=== PATIENT | female | born 1990 | race Caucasian/White ===

== ENCOUNTER 2022-12-16 16:15 | Outpatient (CLI) | payer OTHER ==
--- NOTE | 2022-12-16 18:26 | US ---
EXAMINATION TYPE: US OB anatomy transabd DATE OF EXAM: 12/16/2022 COMPARISON: NONE HISTORY: no care repeat c/s possible labor No care. Pt had an us in [place] last we ek, and the baby wasn't in good enough position to get anatomy. TECHNIQUE: Transabdominal (TA) EXAM MEASUREMENTS: GESTATIONAL AGE / DATING Physician Established:Not established yet Dates by LMP: Unknown Dates by First Scan: No previous this is first scan Dates by Current Scan for: (32 weeks/5 days) EDC: 02/05/23 SURVEY IUP: Single PLACENTA: Anterior PREVIA: No previa MADISON: 12.8 cm Normal CERVICAL LENGTH (transabdominal: norm > 3.0cm): 3.2 cm BIOMETRY PRESENTATION: Vertex LIE: Longitudinal BPD: 8.3 cm 33 weeks / 2 days HC: 29.7 cm 33 weeks / 0 days AC: 28.6 cm 32 weeks / 4 days FL: 6.4 cm 33 weeks / 2 days ESTIMATED WEIGHT IN GRAMS: 2076 grams ESTIMATED WEIGHT IN LBS/OZ: 4 lbs. 9 oz. HC/AC: 1.04 Normal FL/AC: 22.5 Normal HEART RATE: 160 bpm RHYTHM: Normal ANATOMY SEEN (within normal limits): Four Chamber Heart Stomach Situs Diaphragm Kidneys (bilateral) Bladder Three Vessel Cord Longitudinal Spine Transverse Spine Arms (bilateral) Legs (bilateral) ANATOMY NOT SEEN: Brain structures Cord insertion Nose/lips Outflow tracts No obvious anomaly visualized during exam. Dr. Cho was in the room during the exam, and did not see any abnormalities either. Baby measuring 32 weeks 5 days. IMPRESSION: Single live intrauterine gestation with ultrasound age 32 weeks 5 days additional information as desc ribed above.
[2022-12-16 19:09] LABS: Appearance,Urine Clear (Clear); Bacteria,Urine Occasional /hpf; Bilirubin,Urine Negative (Negative); Blood,Urine Trace (Negative); Color,Urine Yellow; Glucose,Urine (UA) Negative (Negative); Ketones,Urine 2+ (Negative); Leukocyte Esterase,Urine Negative (Negative); Mucus,Urine Rare /hpf; Nitrite,Urine Negative (Negative); Protein,Urine Trace (Negative); RBC,Urine 23 /hpf (0-5); Specific Gravity,Urine 1.025 (1.001-1.035); Squamous Epithelial Cell,Urine 10 /hpf (0-4); WBC,Urine 2 /hpf (0-5)
[2022-12-16 19:31] LABS: Amphetamine Screen,Urine Not Detected (NotDetected); Barbiturate Screen,Urine Not Detected (NotDetected); Benzodiazepines Screen,Urine Not Detected (NotDetected); Cocaine Screen,Urine Not Detected (NotDetected); Methadone Screen, Urine Not Detected (NotDetected); Opiate Screen,Urine Not Detected (NotDetected); Oxycodone Screen, Urine Not Detected (NotDetected); Phencyclidine Screen,Urine Not Detected (NotDetected); Tricyclic Antidepressant,Urine Not Detected (NotDetected); Urn Cannabinoid Scrn Detected (NotDetected)
[2022-12-16 20:06] VITALS: BP 118/57; PULSE 85; RESP 16; TEMP 98.2
--- NOTE | 2022-12-21 12:33 | P.MSEPDOC ---
Presenting Problems - Arrival Data Date of Arrival on Unit: 12/16/22 Time of Arrival on Unit: 16:15 Mode of Transport: Ambulatory - Complaint OB-Reason for Admission/Chief Complaint: Possible Onset of Labor Comment: pt presents to triage with no care. is unsure of EDC. last period was first week of Apr but it was abnormal. has been to [facility] a few times most recently Friday of last week when she had and IV " because the baby was dehydrated but there was not enought fluid around baby for ultrasound Medical History - Information : 6 Para: 4 Term: 2 : 2 Abortions: Spontaneous or Elective: 1 Number of Living Children: 4 - Gestational Age Gestational Age by TRISTIN (wks/days): 32 Weeks and 5 Days - History Complications: No Care Comment: no care with any of her pregnancies. all deliveries have been per c/s . edc listed above is from our u/s today Review of Systems - Review of Systems Constitutional: No problems Breast: No problems ENT: No problems Cardiovascular: No problems Respiratory: No problems Gastrointestinal: No problems Genitourinary: No problems Musculoskeletal: No problems Neurological: No problems Skin: No problems Vital Signs - Temperature Temperature: 98.2 F Temperature Source: Oral - Pulse Right Pulse Rate: 85 Pulse Assessment Method: Automatic Cuff - Respirations Respiratory Rate: 16 Oxygen Delivery Method: Room Air O2 Sat by Pulse Oximetry: 97 - Blood Pressure Right Arm Blood Pressure: 118/57 Blood Pressure Mean: 77 Blood Pressure Source: Automatic Cuff Medical Screen Scoring - Cervical Exam Dilation (cm): 0 Effacement (%): 0 Membranes: Intact - Uterine Contractions Frequency From (mins): 4 Frequency To (mins): 16 Duration From (seconds): 30 Duration To (seconds): 80 Intensity: Mild Resting: Soft to palpation - Assessment - Baby A Baseline FHR: 135 Heart Rate - NICHD Category: Category I (Normal) NST: Reactive Physician Notification - Physician Notified Physician Notified Date: 12/16/22 Physician Notified Time: 16:35 Physician: Barrett Cho - Notification Comment Comment: Ultrasound UA and FFN ordered Maternal Triage Index - Maternal Triage Index Presenting for scheduled procedure w/no complaint: No - Stat/Priority 1 Stat Priority 1: Yes Provider Notified: Barrett Cho Provider Notified Time: 16:35 Criteria Met for Priority 1: no care. previous c/s times 4. presents stating in labor needs c/s. unknown edc Disposition - Disposition Transferred to:: left AGAINST MEDICAL ADVISE PRIOR TO LAB RESULTS RETURNED REFUSES CARE Discharge Date: 12/16/22 Discharge Time: 19:15 I agree with the RN Medical Screening Exam: Yes Physician's MSE Comment: I was present at bedside for ultrasound and discussed all findings with the patient at some length. She opted to leave AGAINST MEDICAL ADVICE prior to completion of the entire workup. Case reviewed; plan agreed upon as documented in EMR&OBIX.: Yes Diagnosis: RELATED CONDITIONS, UNSPECIFIED, THIRD TRIMESTER
== END 2022-12-16 19:15 | disposition left against medical advice (07) ==
LOC: FBPOP 16:15
PROVIDERS: ATTEND Obstetrics & Gynecology
DX: O26.893 Other specified pregnancy related conditions, third trimester (principal); O99.333 Smoking (tobacco) complicating pregnancy, third trimester; Z3A.32 32 weeks gestation of pregnancy; F17.200 Nicotine dependence, unspecified, uncomplicated
CPT/HCPCS: 59025; 84112; 82731; 81001; 80306; 76811; G0463; 99213

== ENCOUNTER 2023-01-02 14:55 | Outpatient (CLI) | payer OTHER ==
[2023-01-02 15:21] VITALS: BP 110/63; PULSE 93; RESP 16; TEMP 96.9
[2023-01-02 16:35] LABS: Appearance,Urine Clear (Clear); Bilirubin,Urine Negative (Negative); Blood,Urine Negative (Negative); Color,Urine Yellow; Glucose,Urine (UA) Negative (Negative); Ketones,Urine Negative (Negative); Leukocyte Esterase,Urine Trace (Negative); Mucus,Urine Rare /hpf; Nitrite,Urine Negative (Negative); Protein,Urine Trace (Negative); RBC,Urine <1 /hpf (0-5); Specific Gravity,Urine 1.021 (1.001-1.035); Squamous Epithelial Cell,Urine 12 /hpf (0-4); WBC,Urine 2 /hpf (0-5)
--- NOTE | 2023-01-02 16:43 | US ---
EXAMINATION TYPE: US OB limited DATE OF EXAM: 01/02/2023 COMPARISON: Prior ultrasound December 16, 2022 CLINICAL INDICATION: Female, 32 years old with history of madison, position, placental position; EXAM PERFORMED: Transabdominal (TA) GESTATIONAL AGE / DATING No growth performed on today?s study per ordering physician SURVEY PLACENTA: Anterior PREVIA: No Previa Ultrasound evidence of abruption? MADISON: 13 cm Normal (Tech?if abnormal transabdominally?image transvaginally to substantiate abnormality.) PRESENTATION: Vertex LIE: Longitudinal HEART RATE: 128 bpm RHYTHM: Normal Single live intrauterine gestation redemonstrated. Normal cephalad presentation again seen. No placen ta previa. Estimated amniotic fluid index within normal limits. IMPRESSION: As above. No suspicious abnormalities seen.
[2023-01-02 16:44] LABS: Amphetamine Screen,Urine Not Detected (NotDetected); Barbiturate Screen,Urine Not Detected (NotDetected); Benzodiazepines Screen,Urine Not Detected (NotDetected); Cocaine Screen,Urine Not Detected (NotDetected); Methadone Screen, Urine Not Detected (NotDetected); Opiate Screen,Urine Not Detected (NotDetected); Oxycodone Screen, Urine Not Detected (NotDetected); Phencyclidine Screen,Urine Not Detected (NotDetected); Tricyclic Antidepressant,Urine Not Detected (NotDetected); Urn Cannabinoid Scrn Detected (NotDetected)
[2023-01-02 17:01] LABS: Basophils % (A) 0 %; Eosinophils # (A) 0.1 k/uL (0-0.7); Eosinophils % (A) 1 %; HGB 11.5 gm/dL (11.4-16.0); Lymphocytes # (A) 2.6 k/uL (1.0-4.8); Lymphocytes % (A) 15 %; MCH 25.2 pg (25.0-35.0); MCHC 32.8 g/dL (31.0-37.0); MCV 76.8 fL (80.0-100.0); Mean Platelet Volume 7.6; Microcytosis Slight; Monocytes # (A) 0.6 k/uL (0-1.0); Monocytes % (A) 3 %; Neutrophils # (A) 14.1 k/uL (1.3-7.7); Neutrophils % (A) 80 %; Platelet Count 314 k/uL (150-450); RBC 4.56 m/uL (3.80-5.40); RDW 15.7 % (11.5-15.5); WBC 17.7 k/uL (3.8-10.6)
[2023-01-03 03:14] LABS: Hepatitis B Surface Antigen Nonreactive (Nonreactive)
[2023-01-03 04:40] LABS: HIV 2 AB Non-Reactive (Non-Reactive); HIV AB P24 Non-Reactive (Non-Reactive); HIV P24 AG Non-Reactive (Non-Reactive)
[2023-01-03 16:45] LABS: C. trachomatis,PCR Negative (Neg,Equiv); Chlamydia trachomatis Source Urine; N. gonorrhoeae,PCR Negative (Neg,Equiv); Neisseria Source Urine
--- NOTE | 2023-01-07 08:10 | P.MSEPDOC ---
Presenting Problems - Arrival Data Date of Arrival on Unit: 01/02/23 Time of Arrival on Unit: 14:55 Mode of Transport: Portable - Complaint OB-Reason for Admission/Chief Complaint: Decreased Movement Comment: no movement felt since 10 am yesterday Medical History - Information : 6 Para: 5 Term: 5 : 0 Abortions: Spontaneous or Elective: 0 Number of Living Children: 5 - Gestational Age Gestational Age by TRISTIN (wks/days): 35 Weeks and 1 Days - History Complications: No Care, Smoker, Hx. Substance Abuse Comment: thc use Review of Systems - Review of Systems Constitutional: No problems Breast: No problems ENT: No problems Cardiovascular: No problems Respiratory: No problems Gastrointestinal: No problems Genitourinary: No problems Musculoskeletal: No problems Neurological: No problems Skin: No problems Vital Signs - Temperature Temperature: 96.9 F Temperature Source: Temporal Artery Scan - Pulse Right Brachial Pulse Rate: 93 Pulse Assessment Method: Automatic Cuff - Respirations Respiratory Rate: 16 Oxygen Delivery Method: Room Air O2 Sat by Pulse Oximetry: 97 - Blood Pressure Right Arm Sitting Blood Pressure: 110/63 Blood Pressure Mean: 78 Blood Pressure Source: Automatic Cuff Medical Screen Scoring - Uterine Contractions Frequency From (mins): 0 - Assessment - Baby A Baseline FHR: 130 Heart Rate - NICHD Category: Category I (Normal) NST: Reactive Physician Notification - Physician Notified Physician Notified Date: 01/02/23 Physician Notified Time: 17:00 Physician: Charisse Jean Order Received: Yes - Notification Comment Comment: discharge home with instruction Maternal Triage Index - Prompt/Priority 3 Prompt Priority 3: Yes Criteria Met for Priority 3: 35 1/7 decreased movement Disposition - Disposition OB Disposition: Triage, Discharge to home, Written follow up instructions reviewed Discharge Date: 01/02/23 Discharge Time: 17:01 I agree with the RN Medical Screening Exam: Yes Case reviewed; plan agreed upon as documented in EMR&OBIX.: Yes Diagnosis: DECREASED MOVEMENTS, THIRD TRIMESTER, UNSP
== END 2023-01-02 17:01 | disposition home or self-care (01) ==
LOC: FBPOP 14:55
PROVIDERS: ATTEND Obstetrics & Gynecology
DX: O36.8131 Decreased fetal movements, third trimester, fetus 1 (principal); F17.200 Nicotine dependence, unspecified, uncomplicated; O99.333 Smoking (tobacco) complicating pregnancy, third trimester; Z3A.35 35 weeks gestation of pregnancy; Z36.89 Encounter for other specified antenatal screening
CPT/HCPCS: 59025; 86900; 86901; 86762; 82947; 85025; 86850; 87340; 81001; 87491; 87591; 86780; 80306; 87390; 76815; G0463; 99213